=== PATIENT | male | born 1940 | race Caucasian/White ===

== ENCOUNTER → 2017-03-27 | Outpatient (CLI) | payer MEDICARE ==
[~2017-03-27] MED LIST: ACET500C15 PO; AMIL5TAB2 PO; ASCO10004 PO; CALC0.25 PO; CEFD300C37 PO; EZET1TAB26 PO; FLUT10.6 NAS; LANS30CA PO; LATA2.5D3 EACHEYE; LISI5TAB7 PO; MAGN71.5 PO; METO25TA35 PO; METR500T PO; OMEG500C3 PO; POLY17PO5 PO; RIVA20TA PO; SAXA5TAB PO; SOTA80TA PO; TAMS0.4C2 PO; TRAM-47 PO; [UNRECOGNIZED DRUG - CODE] PO
== END ==
LOC: CFH 07:51
PROVIDERS: ATTEND Internal Medicine Cardiovascular Disease
DX: Z02.9 Encounter for administrative examinations, unspecified (principal)

== ENCOUNTER 2020-08-10 14:53 | Outpatient (CLI) | payer MEDICARE ==
[~2020-08-10 14:53] MED LIST changes: +ASCO100018 PO; -ASCO10004 PO; -LATA2.5D3 EACHEYE; +LATA2.5D4 EACHEYE
== END 2020-08-10 23:59 | disposition home or self-care (01) ==
LOC: CFH 14:53
PROVIDERS: ATTEND Internal Medicine Cardiovascular Disease
DX: I08.1 Rheumatic disorders of both mitral and tricuspid valves (principal); I48.91 Unspecified atrial fibrillation
CPT/HCPCS: 93306

== ENCOUNTER 2020-08-28 10:04 | Day surgery (SDC) | payer MEDICARE ==
[~2020-08-28] VITALS: Ht 172.7 cm; Wt 81.8 kg
[2020-08-28 10:58] VITALS: BP 119/83
[2020-08-28] MEDS ORDERED: MIRA50TA PO (11:13)
[2020-08-28] MEDS ORDERED: MULT1TAB57 PO (11:13)
[2020-08-28] MEDS ORDERED: BRIM5DRO3 EACHEYE (11:13)
[2020-08-28] MEDS ORDERED: EMPA10TA PO (11:13)
[2020-08-28] MEDS ORDERED: ATOR20TA37 PO (11:13)
[2020-08-28] MEDS ORDERED: OMEP-110 PO (11:13)
[2020-08-28] MEDS ORDERED: SOTA80TA PO (11:15)
[2020-08-28 11:25] LABS: INTERNATIONAL NORMALIZED RATIO 1.22 (0.93-1.1)
[2020-08-28 11:26] LABS: ALANINE AMINOTRANSFERASE 29 U/L (12-78); ALBUMIN 3.8 g/dL (3.4-5.0); ANION GAP 5 mmol/L (5-15); CALCIUM 9.6 mg/dL (8.5-10.1); CHLORIDE 109 mmol/L (98-107)
[2020-08-28 11:29] LABS: ALKALINE PHOSPHATASE 93 U/L (45-117); BILIRUBIN,TOTAL 0.7 mg/dL (0.2-1.0); CREATININE 1.43 mg/dL (0.7-1.3); TOTAL PROTEIN 7.9 g/dL (6.4-8.2)
[2020-08-28 11:35] LABS: BASOPHILS % (AUTO) 1 % (0-1); EOSINOPHILS % (AUTO) 3 % (1-7); LYMPHOCYTES % (AUTO) 24 % (22-44); MEAN CORPUSCULAR HEMOGLOBIN 30.8 pg (27.5-34.5); MEAN PLATELET VOLUME 9.4 fL (7.4-10.4); MONOCYTES % (AUTO) 8 % (2-9); NEUTROPHILS % (AUTO) 64 % (42-75); PLATELET COUNT 214 x10^3/uL (130-400); RED BLOOD COUNT 5.49 x10^6/uL (4.38-5.82); RED CELL DISTRIBUTION WIDTH 13.8 % (9.4-14.8)
[2020-08-28 11:36] LABS: MD NO
[2020-08-28] MEDS ORDERED: PROPOFOL 10 MG/ML, 20ML ONE (12:16)
== END 2020-08-28 13:56 | disposition home or self-care (01) ==
LOC: CACL 10:04
PROVIDERS: ATTEND Internal Medicine Cardiovascular Disease
DX: I48.91 Unspecified atrial fibrillation (principal); I25.10 Atherosclerotic heart disease of native coronary artery without angina pectoris; I25.2 Old myocardial infarction; E78.5 Hyperlipidemia, unspecified; E66.9 Obesity, unspecified; Z68.27 Body mass index [BMI] 27.0-27.9, adult; Z79.01 Long term (current) use of anticoagulants; Z79.84 Long term (current) use of oral hypoglycemic drugs; Z79.899 Other long term (current) drug therapy; Z95.5 Presence of coronary angioplasty implant and graft
CPT/HCPCS: 36415; 71046; 80053; 85025; 85610; 92960; 93005; J2704

== ENCOUNTER → 2020-10-31 | Outpatient (CLI) | payer MEDICARE ==
[~2020-10-31] MED LIST changes: +ATOR20TA37 PO; +BRIM5DRO3 EACHEYE; +EMPA10TA PO; +MIRA50TA PO; +MULT1TAB58 PO; +OMEP-110 PO; +OMNIPAQUE 350 MG/ML, 150 ML BOTTLE ONE
== END | disposition home or self-care (01) ==
LOC: CFH 12:33
PROVIDERS: ATTEND Internal Medicine Cardiovascular Disease
DX: I25.10 Atherosclerotic heart disease of native coronary artery without angina pectoris (principal); I48.91 Unspecified atrial fibrillation; I25.2 Old myocardial infarction; E11.9 Type 2 diabetes mellitus without complications
CPT/HCPCS: 71046; 75572; Q9967

== ENCOUNTER 2020-11-02 06:16 | Observation (INO) | payer MEDICARE ==
[~2020-11-02] VITALS: Ht 172.7 cm; Wt 89.9 kg
[~2020-11-02 06:16] MED LIST changes: -OMNIPAQUE 350 MG/ML, 150 ML BOTTLE ONE
[2020-11-02] MEDS ORDERED: ROCURONIUM 10 MG/ML,10ML ONE (06:22)
[2020-11-02] MEDS ORDERED: ONDANSETRON 2MG/ML, 2ML ONE (06:22)
[2020-11-02] MEDS ORDERED: DEXAMETHASONE 4 MG/ML, 1ML ONE (06:22)
[2020-11-02] MEDS ORDERED: LIDOCAINE 1%, 20ML ONE ×2 (06:22→10:22)
[2020-11-02] MEDS ORDERED: SUCCINYLCHOLINE 20 MG/ML, 10ML ONE (06:22)
[2020-11-02] MEDS ORDERED: FENTANYL PF 100 MCG/2ML ONE (06:22)
[2020-11-02] MEDS ORDERED: SUGAMMADEX 200 MG/2 ML IVPush ONE (06:22)
[2020-11-02] MEDS ORDERED: PHENYLEPHRINE 10 MG/ML ONE (06:22)
[2020-11-02] MEDS ORDERED: HEPARIN/D5W 25,000 UNITS/250 ML PREMIX ONE (06:22)
[2020-11-02] MEDS ORDERED: PROPOFOL 10 MG/ML, 20ML ONE (06:22)
[2020-11-02] MEDS ORDERED: SODIUM CHLORIDE 0.9% 1,000 ML IV SCH (07:00)
[2020-11-02 07:05] VITALS: BP 114/86
[2020-11-02] MEDS ORDERED: ACET125T2 PO (07:25)
[2020-11-02] MEDS ORDERED: [UNRECOGNIZED DRUG - OTHER] PO (07:25)
[2020-11-02] MEDS ORDERED: TAMS-11 PO (07:25)
[2020-11-02] MEDS ORDERED: CEPH-375 PO (07:25)
[2020-11-02] MEDS ORDERED: APOTEX PO (07:25)
[2020-11-02] MEDS ORDERED: SOTA80TA PO (07:25)
[2020-11-02] MEDS ORDERED: AMIL5TAB2 PO (07:25)
[2020-11-02] MEDS ORDERED: EMPA10TA PO (07:25)
[2020-11-02] MEDS ORDERED: RIVA20TA PO (07:25)
[2020-11-02] MEDS ORDERED: CALC0.25 PO (07:25)
[2020-11-02] MEDS ORDERED: MIRA50TA PO (07:27)
[2020-11-02] MEDS ORDERED: VIT1CAPS11 PO (07:31)
[2020-11-02 07:40] LABS: BASOPHILS % (AUTO) 1 % (0-1); EOSINOPHILS % (AUTO) 4 % (1-7); LYMPHOCYTES % (AUTO) 18 % (22-44); MEAN CORPUSCULAR HEMOGLOBIN 30.5 pg (27.5-34.5); MEAN CORPUSCULAR HGB CONC 33.7 g/dL (33.2-36.2); MONOCYTES % (AUTO) 11 % (2-9); NEUTROPHILS % (AUTO) 65 % (42-75); PLATELET COUNT 187 x10^3/uL (130-400); RED BLOOD COUNT 5.17 x10^6/uL (4.38-5.82); RED CELL DISTRIBUTION WIDTH 13.3 % (9.4-14.8)
[2020-11-02 07:48] LABS: ALANINE AMINOTRANSFERASE 26 U/L (12-78); ALBUMIN 3.1 g/dL (3.4-5.0); ANION GAP 8 mmol/L (5-15); CALCIUM 8.8 mg/dL (8.5-10.1); CHLORIDE 112 mmol/L (98-107); CREATININE 1.29 mg/dL (0.7-1.3)
[2020-11-02 07:49] LABS: INTERNATIONAL NORMALIZED RATIO 1.07 (0.93-1.1); PROTHROMBIN TIME 11.4 Seconds (9.6-11.5)
[2020-11-02 07:59] LABS: ALKALINE PHOSPHATASE 88 U/L (45-117); BILIRUBIN,TOTAL 0.4 mg/dL (0.2-1.0); TOTAL PROTEIN 7.4 g/dL (6.4-8.2)
[2020-11-02] MEDS ORDERED: hydrALAzine 20 MG/ML, 1ML IV PRN (08:00)
[2020-11-02] MEDS ORDERED: OXYcodone 5 MG/5 ML ORAL.SOL UDC PO PRN (08:00)
[2020-11-02] MEDS ORDERED: EPHEDRINE 50 MG/ML, 1ML IVPush PRN (08:00)
[2020-11-02] MEDS ORDERED: LABETALOL 5MG/ML, 20ML IV PRN (08:00)
[2020-11-02] MEDS ORDERED: HYDROmorphone 1 MG/ML, 1ML INJ IVPush PRN (08:00)
[2020-11-02] MEDS ORDERED: PROMETHAZINE 25 MG/ML, 1ML IVPush PRN (08:00)
[2020-11-02] MEDS ORDERED: ONDANSETRON 2MG/ML, 2ML IVPush PRN ×2 (08:00→11:00)
[2020-11-02] MEDS ORDERED: FENTANYL PF 100 MCG/2ML IV PRN (08:00)
[2020-11-02] MEDS ORDERED: ACETAMINOPHEN 325 MG TABLET PO PRN ×2 (08:00→11:00)
[2020-11-02] MEDS ORDERED: MAGNESIUM CHLORIDE 64 MG TABLET.DR PO PRN (11:00)
[2020-11-02] MEDS ORDERED: ZOLPIDEM 5MG TABLET PO PRN (11:00)
[2020-11-02] MEDS ORDERED: RIVAROXABAN 20 MG TABLET PO SCH (11:00)
[2020-11-02] MEDS: TEMPLATE NON-FORMULARY MED. (Brimonidine Tartrate** (Alphagan P**) 1 DROP(S)) EACHEYE SCH ×2 (11:00→17:03)
[2020-11-02 14:00] VITALS: BP 104/67
[2020-11-02] MEDS: RIVAROXABAN 20 MG TABLET PO SCH (15:16)
[2020-11-02] MEDS ORDERED: CEPHALEXIN 500 MG CAPSULE ONE (16:10)
[2020-11-02] MEDS: CEPHALEXIN 250 MG CAPSULE PO SCH ×2 (16:20→21:01)
[2020-11-02] MEDS ORDERED: LATANOPROST OPHTH 0.005%, 2.5ML EACHEYE SCH (21:00)
[2020-11-02] MEDS ORDERED: ATORVASTATIN 20 MG TABLET PO SCH (21:00)
[2020-11-02] MEDS: COLCHICINE 0.6 MG CAPSULE PO SCH (21:01)
[2020-11-02 21:05] VITALS: BP 116/77
[2020-11-03 00:53] VITALS: BP 125/79
[2020-11-03] MEDS: TEMPLATE NON-FORMULARY MED. (Brimonidine Tartrate** (Alphagan P**) 1 DROP(S)) EACHEYE SCH ×2 (03:13→11:00)
[2020-11-03 07:37] VITALS: BP 123/72
[2020-11-03] MEDS: RIVAROXABAN 20 MG TABLET PO SCH (08:55)
[2020-11-03] MEDS: COLCHICINE 0.6 MG CAPSULE PO SCH (08:55)
[2020-11-03] MEDS: CEPHALEXIN 250 MG CAPSULE PO SCH (08:56)
[2020-11-03] MEDS ORDERED: ASCORBIC ACID 500 MG TABLET PO SCH (09:00)
[2020-11-03] MEDS ORDERED: CALCITRIOL 0.25 MCG CAPSULE PO SCH (09:00)
[2020-11-03] MEDS ORDERED: OMEGA-3/FISH OIL CAPSULE PO SCH (09:00)
[2020-11-03] MEDS ORDERED: TEMPLATE NON-FORMULARY MED. (Mirabegron** (Myrbetriq**) 50 MG) PO SCH (09:00)
[2020-11-03] MEDS ORDERED: AMILORIDE 5 MG TABLET PO SCH (09:00)
[2020-11-03] MEDS ORDERED: SOTALOL 80MG TABLET PO SCH (09:00)
[2020-11-03] MEDS ORDERED: TEMPLATE NON-FORMULARY MED. (Vit A/Vit C/Vit E/Zinc/Copper** (Preservision Areds Softgel PO SCH (09:00)
[2020-11-03] MEDS ORDERED: OMEPRAZOLE 20 MG CAPSULE.DR PO SCH (09:00)
[2020-11-03] MEDS ORDERED: MULTIVITAMIN 1 TABLET PO SCH (09:00)
[2020-11-03] MEDS ORDERED: TEMPLATE NON-FORMULARY MED. (Empagliflozin (Jardiance) 1 TAB) PO SCH (09:00)
[2020-11-03] MEDS ORDERED: TAMSULOSIN 0.4 MG CAP.ER.24H PO SCH (09:00)
[2020-11-03] MEDS ORDERED: COLC0.6C3 PO (10:22)
== END 2020-11-03 11:55 | disposition home or self-care (01) ==
LOC: CACL 06:16 → ORIP 10:34 → 5SO 12:09 → CACL 13:10 → 5SO 14:16 → DCLOUNGE 11-03 11:49
PROVIDERS: ADMIT Internal Medicine Cardiovascular Disease; ATTEND Internal Medicine Cardiovascular Disease
DX: I48.91 Unspecified atrial fibrillation (principal); Z20.822 Contact with and (suspected) exposure to COVID-19; I10 Essential (primary) hypertension; I25.10 Atherosclerotic heart disease of native coronary artery without angina pectoris; E11.9 Type 2 diabetes mellitus without complications; E78.5 Hyperlipidemia, unspecified; Z79.899 Other long term (current) drug therapy
CPT/HCPCS: 36415; 80053; 84443; 85025; 85347; 85610; 85730; 93005; 93308; 93312; 93321; 93325; 93613; 93656; 93657; 93662; C1730; C1732; C1766; C1893; C1894; G0378; J0330; J1100; J1644; J2370; J2405; J2704; J2710; J3010; J3490; U0005; U0003